=== PATIENT | male | born 1975 | race Hispanic/Latino ===

== ENCOUNTER 2023-08-01 10:18 | Day surgery (SDC) | payer OTHER ==
[2023-07-28 09:46] LABS: BASOPHILS # (AUTO) 0.04 K/uL (0.00-0.20); BASOPHILS % (AUTO) 0.4 % (0.0-5.0); EOSINOPHILS # (AUTO) 0.14 K/uL (0.00-0.70); EOSINOPHILS % (AUTO) 1.3 % (0.0-8.0); HEMATOCRIT 49.6 % (42-54); IMMATURE GRANULOCYTE ABSOLUTE 0.06 K/uL (0-1); LYMPHOCYTES # (AUTO) 0.8 K/uL (1.0-4.8); LYMPHOCYTES % (AUTO) 7.7 % (21.0-51.0); MEAN CORPUSCULAR HEMOGLOBIN 28.8 pg (27.0-33.0); MEAN CORPUSCULAR HGB CONC 31.7 g/dL (32.0-36.0); MONOCYTES # (AUTO) 1.2 K/uL (0.1-1.0); MONOCYTES % (AUTO) 11.7 % (3.0-13.0); NEUTROPHILS # (AUTO) 8.2 K/uL (1.8-7.7); NEUTROPHILS % (AUTO) 78.3 % (40.0-77.0); PLATELET COUNT (AUTO) 183 K/uL (130-400); RED BLOOD CELL COUNT(AUTO) 5.45 MIL/uL (4.50-6.20); RED CELL DISTRIBUTION WIDTH 13.8 % (11.0-15.5); WHITE BLOOD COUNT (AUTO) 10.5 K/uL (4.8-10.8)
[2023-07-28 09:53] LABS: CREATININE 0.9 mg/dL (0.5-1.5)
[2023-07-28 09:55] LABS: INR 0.98 (0.85-1.15); PROTHROMBIN TIME 11.4 SEC (9.6-11.6)
[2023-07-28 09:58] VITALS: BP 126/70; PULSE 72; RESP 17
[2023-07-28 10:54] LABS: ADD UA MICROSCOPIC YES; APPEARANCE,URINE CLEAR (CLEAR); BILIRUBIN,URINE NEGATIVE (NEGATIVE); COLOR,URINE YELLOW (YELLOW); GLUCOSE, URINE (UA) NEGATIVE (NEGATIVE); KETONES,URINE NEGATIVE (NEGATIVE); LEUKOCYTE ESTERASE ,URINE NEGATIVE Leu/uL (NEGATIVE); NITRATE,URINE NEGATIVE (NEGATIVE); OCCULT BLOOD,URINE MODERATE (NEGATIVE); PROTEIN,URINE 20 mg/dL (NEGATIVE); UROBILINOGEN,URINE 0.2 mg/dL (0.2-1.0)
[2023-07-28 10:57] LABS: BACTERIA,URINE FEW /HPF (None Seen); MUCUS,URINE RARE LPF (None Seen); WBC,URINE 0-1 /HPF (0-1)
[2023-07-28 11:29] LABS: B-TYPE NATRIURETIC PEPTIDE 182 pg/mL (0-100)
[~2023-08-01] VITALS: Ht 167.6 cm; Wt 44.6 kg
[2023-08-01] VITALS (8 sets, daily range): BP systolic 109–149; BP diastolic 64–74; PULSE 63–77; RESP 16–19
[~2023-08-01 10:18] MED LIST: ATOR40TA71 PO; METO-408 PO; OMEP20CA12 PO; SACU1TAB PO
[2023-08-01] MEDS ORDERED: 0.9%NACL 1000ML 1,000 ML IV ONE (11:20)
[2023-08-01] MEDS ORDERED: LIDOCAINE HCL 400MG/20ML VIAL ONE (16:41)
[2023-08-01] MEDS ORDERED: NITROGLYCERIN 50MG VIAL ONE ×2 (16:41→16:59)
[2023-08-01] MEDS ORDERED: MIDAZOLAM HCL 1 MG/ML 2ML VIAL ONE ×3 (16:41→17:53)
[2023-08-01] MEDS ORDERED: HEPARIN 10,000 UNIT/10ML (1,000 UNIT/ML) VIAL ONE (16:42)
[2023-08-01] MEDS ORDERED: FENTANYL CITRATE PF 50 MCG/1 ML 2ML VIAL ONE (16:42)
[2023-08-01] MEDS ORDERED: VERAPAMIL HCL 2.5 MG/ML VIAL ONE (16:42)
[2023-08-01] MEDS ORDERED: IOHEXOL 350 MG/ML 100ML INFUS..BTL IV ONE (16:42)
[2023-08-01] MEDS ORDERED: ONDANSETRON 4MG INJ ONE (16:49)
[2023-08-01] MEDS ORDERED: DiphenhydrAMINE HCL 50 MG/ML VIAL ONE (17:51)
[2023-08-01] MEDS ORDERED: GLUCAGON 1MG KIT 1 MG ML IM PRN (18:30)
[2023-08-01] MEDS ORDERED: DEXTROSE 50%-WATER 50 ML DISP.SYRIN IV PRN (18:30)
== END 2023-08-01 23:15 | disposition home or self-care (01) ==
LOC: DAH 10:18 → EDSTATUS 13:00 → DAH 23:15
PROVIDERS: ATTEND Student in an Organized Health Care Education/Training Program
DX: R93.1 Abnormal findings on diagnostic imaging of heart and coronary circulation (principal); I20.9 Angina pectoris, unspecified; Q25.0 Patent ductus arteriosus; I11.0 Hypertensive heart disease with heart failure; I50.22 Chronic systolic (congestive) heart failure; I44.7 Left bundle-branch block, unspecified; K21.9 Gastro-esophageal reflux disease without esophagitis; E78.5 Hyperlipidemia, unspecified; F17.200 Nicotine dependence, unspecified, uncomplicated; Z79.01 Long term (current) use of anticoagulants; Z79.899 Other long term (current) drug therapy; Z98.890 Other specified postprocedural states
CPT/HCPCS: 80048; 83880; 85025; 85610; 85730; 81001; 36415; 71045; 93005; 93460; C1894 ×2; C1769 ×2; A4649; J1200; J3010; J3490 ×4; J7030; J1644 ×2; J2250 ×3; J2405; Q9967; A4215; A4222; A4221; A4663; A4216; A4606; Q9965; A4223 ×3; 99156; 99157

== ENCOUNTER → 2024-02-23 | Outpatient (CLI) | payer OTHER ==
[~2024-02-23] VITALS: Ht 167.6 cm; Wt 87.8 kg
[~2024-02-23] MED LIST changes: +EMPA10TA PO; +SPIR25TA6 PO; +TRAM50TA4 PO
[2024-02-23 12:12] LABS: BASOPHILS # (AUTO) 0.04 K/uL (0.00-0.20); BASOPHILS % (AUTO) 0.5 % (0.0-5.0); EOSINOPHILS # (AUTO) 0.23 K/uL (0.00-0.70); EOSINOPHILS % (AUTO) 2.6 % (0.0-8.0); HEMATOCRIT 47.7 % (42-54); IMMATURE GRANULOCYTE ABSOLUTE 0.03 K/uL (0-1); LYMPHOCYTES # (AUTO) 1.3 K/uL (1.0-4.8); LYMPHOCYTES % (AUTO) 14.6 % (21.0-51.0); MEAN CORPUSCULAR HEMOGLOBIN 29.5 pg (27.0-33.0); MEAN CORPUSCULAR HGB CONC 32.1 g/dL (32.0-36.0); MEAN CORPUSCULAR VOLUME 91.9 fL (79-99); MONOCYTES # (AUTO) 0.8 K/uL (0.1-1.0); MONOCYTES % (AUTO) 9.5 % (3.0-13.0); NEUTROPHILS # (AUTO) 6.3 K/uL (1.8-7.7); NEUTROPHILS % (AUTO) 72.5 % (40.0-77.0); PLATELET COUNT (AUTO) 257 K/uL (130-400); RED BLOOD CELL COUNT(AUTO) 5.19 MIL/uL (4.50-6.20); RED CELL DISTRIBUTION WIDTH 13.8 % (11.0-15.5); WHITE BLOOD COUNT (AUTO) 8.7 K/uL (4.8-10.8)
[2024-02-23 12:28] LABS: INR <= 0.93 (0.85-1.15); PROTHROMBIN TIME 10.7 SEC (9.6-11.6)
[2024-02-23 12:30] LABS: PARTIAL THROMBOPLASTIN TIME 28.2 SEC (26.3-35.5)
[2024-02-23 13:18] VITALS: BP 126/73; PULSE 63; RESP 18
[2024-02-23 13:45] LABS: CREATININE 0.9 mg/dL (0.5-1.3); POTASSIUM 4.5 mmol/L (3.5-5.1)
== END | disposition home or self-care (01) ==
LOC: DAH 10:00 → EDSTATUS 15:00
PROVIDERS: ATTEND Internal Medicine Cardiovascular Disease
DX: I44.7 Left bundle-branch block, unspecified (principal); I50.20 Unspecified systolic (congestive) heart failure; I42.8 Other cardiomyopathies
CPT/HCPCS: 36415; 80048; 85025; 85610; 85730; 93005

== ENCOUNTER 2024-02-28 06:36 | Observation (INO) | payer OTHER ==
[~2024-02-28] VITALS: Ht 167.6 cm; Wt 86.4 kg
[2024-02-28] VITALS (12 sets, daily range): BP systolic 113–136; BP diastolic 67–84; PULSE 60–72; RESP 16–20; O2SAT 100
[~2024-02-28 06:36] MED LIST changes: -ATOR40TA71 PO; -OMEP20CA12 PO; -TRAM50TA4 PO
[2024-02-28 07:08] LABS: BASOPHILS # (AUTO) 0.05 K/uL (0.00-0.20); BASOPHILS % (AUTO) 0.6 % (0.0-5.0); EOSINOPHILS # (AUTO) 0.27 K/uL (0.00-0.70); EOSINOPHILS % (AUTO) 3.2 % (0.0-8.0); HEMATOCRIT 47.1 % (42-54); IMMATURE GRANULOCYTE ABSOLUTE 0.04 K/uL (0-1); LYMPHOCYTES # (AUTO) 1.5 K/uL (1.0-4.8); LYMPHOCYTES % (AUTO) 17.3 % (21.0-51.0); MEAN CORPUSCULAR HEMOGLOBIN 29.7 pg (27.0-33.0); MEAN CORPUSCULAR HGB CONC 32.7 g/dL (32.0-36.0); MEAN CORPUSCULAR VOLUME 90.9 fL (79-99); MONOCYTES # (AUTO) 0.9 K/uL (0.1-1.0); MONOCYTES % (AUTO) 10.2 % (3.0-13.0); NEUTROPHILS # (AUTO) 5.8 K/uL (1.8-7.7); NEUTROPHILS % (AUTO) 68.2 % (40.0-77.0); PLATELET COUNT (AUTO) 250 K/uL (130-400); RED BLOOD CELL COUNT(AUTO) 5.18 MIL/uL (4.50-6.20); RED CELL DISTRIBUTION WIDTH 13.7 % (11.0-15.5); WHITE BLOOD COUNT (AUTO) 8.4 K/uL (4.8-10.8)
[2024-02-28 07:25] LABS: ALBUMIN 4.1 g/dL (3.5-5.0); BILIRUBIN,TOTAL 0.8 mg/dL (0.2-1.0); CREATININE 0.7 mg/dL (0.5-1.3); POTASSIUM 3.8 mmol/L (3.5-5.1); TOTAL PROTEIN, SERUM 7.3 g/dL (6.0-8.3)
[2024-02-28 08:15] LABS: B-TYPE NATRIURETIC PEPTIDE 251 pg/mL (0-100)
[2024-02-28 08:48] LABS: ADD UA MICROSCOPIC YES; APPEARANCE,URINE CLEAR (CLEAR); BILIRUBIN,URINE NEGATIVE (NEGATIVE); COLOR,URINE LIGHT-YELLOW (YELLOW); GLUCOSE, URINE (UA) >=1000 mg/dL (NEGATIVE); KETONES,URINE 5 mg/dL (NEGATIVE); LEUKOCYTE ESTERASE ,URINE NEGATIVE Leu/uL (NEGATIVE); NITRATE,URINE NEGATIVE (NEGATIVE); OCCULT BLOOD,URINE SMALL (NEGATIVE); PROTEIN,URINE NEGATIVE (NEGATIVE); UROBILINOGEN,URINE 0.2 mg/dL (0.2-1.0)
[2024-02-28] MEDS ORDERED: IODIXANOL 320 MG/ML 100 ML VIAL ONE (14:47)
[2024-02-28] MEDS ORDERED: CEFAZOLIN SODIUM 1 GM VIAL ONE (14:47)
[2024-02-28] MEDS ORDERED: BUPIVACAINE/PF 0.25% 30ML VIAL IJ ONE (14:47)
[2024-02-28] MEDS ORDERED: LIDOCAINE HCL 1% MDV 50ML VIAL ONE (14:47)
[2024-02-28] MEDS ORDERED: MEPERIDINE-PF 25 MG/ML SYG ONE ×4 (15:05→15:44)
[2024-02-28] MEDS ORDERED: MIDAZOLAM HCL 1 MG/ML 2ML VIAL ONE ×4 (15:06→15:44)
[2024-02-28] MEDS ORDERED: ONDANSETRON 4MG INJ ONE (15:38)
[2024-02-28] MEDS ORDERED: PROPOFOL 10 MG/ML 20ML VIAL IV ONE (16:13)
[2024-02-28] MEDS ORDERED: PROPOFOL 1000 MG/100 ML 100 ML IV ONE (16:14)
[2024-02-28] MEDS ORDERED: KETAMINE 50MG/ML SYRINGE 50 MG/ML DISP.SYRIN ONE (16:14)
[2024-02-28] MEDS ORDERED: FENTANYL CITRATE PF 50 MCG/1 ML 2ML VIAL ONE ×2 (16:15)
[2024-02-28] MEDS ORDERED: ATROPINE 1MG SYG IVP ONE (16:24)
[2024-02-28] MEDS ORDERED: PHENYLEPHRINE HCL 10 MG/ML 1ML VIAL IV ONE (16:25)
[2024-02-28] MEDS ORDERED: ACETAMINOPHEN WITH CODEINE 1 TAB TAB PO PRN (18:00)
[2024-02-28] MEDS: SACUBITRIL/VALSARTAN 1 EACH TABLET PO SCH (20:20)
[2024-02-29 00:09] VITALS: BP 123/74; PULSE 70; RESP 18
[2024-02-29 03:19] VITALS: BP 113/62; PULSE 69; RESP 18
[2024-02-29] MEDS: ACETAMINOPHEN 500 MG TABLET PO PRN (04:05)
[2024-02-29] MEDS: EMPAGLIFLOZIN 10MG TABLET PO SCH (07:35)
[2024-02-29] MEDS: SPIRONOLACTONE 25 MG TAB PO SCH (07:35)
[2024-02-29] MEDS: METOPROLOL SUCCINATE 25 MG TAB.SR.24H PO SCH (07:35)
[2024-02-29 07:45] VITALS: BP 141/71; PULSE 78; RESP 18
[2024-02-29 09:50] VITALS: O2SAT 100
[2024-02-29 11:25] VITALS: BP 115/75; PULSE 74; RESP 18
[2024-02-29] MEDS ORDERED: TRAM50TA4 PO (12:47)
== END 2024-02-29 15:39 | disposition home or self-care (01) ==
LOC: EDH 06:36 → EDHIP 09:05 → 3CH 14:45 → 2AH 17:49
PROVIDERS: ADMIT Internal Medicine Cardiovascular Disease; ATTEND Internal Medicine Cardiovascular Disease
DX: I42.8 Other cardiomyopathies (principal); I44.7 Left bundle-branch block, unspecified; I11.0 Hypertensive heart disease with heart failure; I50.20 Unspecified systolic (congestive) heart failure; R07.89 Other chest pain; R55 Syncope and collapse; I25.2 Old myocardial infarction; E78.5 Hyperlipidemia, unspecified; Z79.899 Other long term (current) drug therapy; Z98.890 Other specified postprocedural states
CPT/HCPCS: 33225; 33249; 84484 ×2; 80053; 83880; 85025; 81001; 36415; 99291; 93005; 71045; C1769 ×2; C1882; C1900; C1896; C1895; G0378 ×28; J3010 ×2; J0690; J0665; J0461; J2250 ×3; J2704 ×2; J2405; J2175 ×3; J3490 ×2; J2371; Q9967; 99156; 99157

== ENCOUNTER → 2024-05-01 | Outpatient (CLI) | payer OTHER ==
[~2024-05-01] MED LIST changes: +TRAM50TA4 PO
[2024-05-01 12:10] LABS: BASOPHILS # (AUTO) 0.07 K/uL (0.00-0.20); BASOPHILS % (AUTO) 0.6 % (0.0-5.0); EOSINOPHILS # (AUTO) 0.24 K/uL (0.00-0.70); EOSINOPHILS % (AUTO) 2.2 % (0.0-8.0); HEMATOCRIT 48.3 % (42-54); IMMATURE GRANULOCYTE ABSOLUTE 0.08 K/uL (0-1); LYMPHOCYTES # (AUTO) 1.5 K/uL (1.0-4.8); LYMPHOCYTES % (AUTO) 13.7 % (21.0-51.0); MEAN CORPUSCULAR HEMOGLOBIN 29.4 pg (27.0-33.0); MEAN CORPUSCULAR HGB CONC 31.3 g/dL (32.0-36.0); MEAN CORPUSCULAR VOLUME 94.2 fL (79-99); MONOCYTES # (AUTO) 0.9 K/uL (0.1-1.0); MONOCYTES % (AUTO) 8.1 % (3.0-13.0); NEUTROPHILS # (AUTO) 8.3 K/uL (1.8-7.7); NEUTROPHILS % (AUTO) 74.7 % (40.0-77.0); PLATELET COUNT (AUTO) 248 K/uL (130-400); RED BLOOD CELL COUNT(AUTO) 5.13 MIL/uL (4.50-6.20); RED CELL DISTRIBUTION WIDTH 13.7 % (11.0-15.5); WHITE BLOOD COUNT (AUTO) 11.1 K/uL (4.8-10.8)
[2024-05-01 12:17] LABS: CREATININE 0.9 mg/dL (0.5-1.3); POTASSIUM 4.3 mmol/L (3.5-5.1)
== END | disposition home or self-care (01) ==
LOC: LAB 08:48
PROVIDERS: ATTEND Student in an Organized Health Care Education/Training Program
DX: R07.9 Chest pain, unspecified (principal); E78.5 Hyperlipidemia, unspecified; I42.8 Other cardiomyopathies
CPT/HCPCS: 36415; 80048; 85025

== ENCOUNTER 2025-03-20 16:08 | Observation (INO) | payer OTHER ==
[~2025-03-20] VITALS: Ht 167.6 cm; Wt 88.9 kg
--- NOTE | 2025-03-20 16:16 | ERN ---
ED Note History of Present Illness Stated Complaint: SCHOCKED BY DEFIBRILLATOR Chief Complaint: AICD FIRED OR SHOCKED Time Seen by MD: 16:10 Dictation: PATIENT IS A 49-YEAR-OLD MALE PATIENT OF DR. GUTIERREZ WHO WAS AT HOME LYING IN BED WATCHING TV APPROXIMATELY 1500 HOURS. HE STATES HIS AICD DEFIBRILLATOR WENT OFF FOR TIMES ONCE ONLY HE STATES HE HAS HAD NO FURTHER SHOCKS. HE DENIES CHEST PAIN BACK PAIN NO SOB. STATES HE DID TAKE HIS MEDICATIONS LATE THIS AFTERNOON BUT HE FINALLY TOOK A. PATIENT CALLED HIS SALARY MANAGER'S ADVISED HIM TO COME TO THE EMERGENCY ROOM. Allergies: Coded Allergies: No Known Drug Allergies (Unverified Allergy, Unknown, 02/23/24) Home Meds Active Scripts Tramadol Hcl (Tramadol HCl) 50 Mg Tablet, 50 MG PO Q6HPRN PRN for PAIN, #15 TAB 0 Refills Prov:KIARRA BROWN MD 02/29/24 Reported Medications Metoprolol Succinate (Metoprolol Succinate) 50 Mg Tab.er.24h, 50 MG PO DAILY, TAB 03/20/25 Spironolactone (Spironolactone) 25 Mg Tablet, 25 MG PO DAILY, TAB 02/23/24 Empagliflozin (Jardiance) 10 Mg Tablet, 10 MG PO DAILY, TAB 02/23/24 Sacubitril/Valsartan (Entresto 24 mg-26 mg Tablet) 24 Mg-26 Mg Tablet, 1 EACH PO BID, TAB 07/29/23 Metoprolol Succinate (Metoprolol Succinate) 25 Mg Tab.er.24h, 1 TAB PO DAILY 07/29/23 Past Medical History Past Medical History: High Cholesterol, Heart Disease, Hypertension, Other Surgical History: Pacer/MARCELL RN Note Reviewed/Agreed w/PFSH: Yes Review of System Dictation CONSTITUTIONAL: NEGATIVE EXCEPT FOR HPI HEAD/FACE: NEGATIVE EXCEPT FOR HPI EENT: NEGATIVE EXCEPT FOR HPI RESPIRATORY: NEGATIVE EXCEPT FOR HPI AICD DEFIBRILLATOR GASTROINTESTINAL/ABDOMINAL: NEGATIVE EXCEPT FOR HPI GENITOURINARY: NEGATIVE EXCEPT FOR HPI MUSCULOSKELETAL: NEGATIVE EXCEPT FOR HPI INTEGUMENTARY: NEGATIVE EXCEPT FOR HPI NEUROLOGICAL/PSYCH: NEGATIVE EXCEPT FOR HPI HEMATOLOGIC/LYMPHATIC: NEGATIVE EXCEPT FOR HPI ALL SYSTEMS NEGATIVE, EXCEPT NOTED ABOVE. 13 POINT REVIEW OF SYSTEMS ASSESSED AND ALL NEGATIVE EXCEPT FOR ABOVE. Initial Vital Sign VS Vital Signs Date Time Temp Pulse Resp B/P (MAP) Pulse Ox O2 Delivery O2 Flow Rate FiO2 03/20/25 16:09 97.9 87 16 129/79 97 Room Air 0 Physical Exam Dictation VITAL SIGNS REVIEWED GENERAL APPEARANCE: ALERT, ORIENTED X 3, NO ACUTE DISTRESS, WELL DEVELOPED, NOURISHED. OB/NO ACUTE DISTRESS HEAD AND FACE: NON-TRAUMATIC. EYES: PERRL, PINK CONJUNCTIVAS, EYELID NO TRAUMA, ANTERIOR CHAMBER WITH ARCUS SENILIS. EARS: PINNAS INTACT AND NO SIGNS OF TRAUMA OR ERYTHEMA EAR CANALS CLEAR AND NO DISCHARGE TM NO ERYTHEMA NOSE: NO DISCHARGE, NO BLEEDING. OROPHARYNX: MOUTH NORMAL, TONGUE PINK, PHARYNX CLEAR,NO ERYTHEMA, TONSILS NO EXUDATES, NO ABSCESSES NOTED, MUCOUS MEMBRANE MOIST NECK: SUPPLE, NON-TENDER, NO THYROMEGALY, NO MASSES, NO JVD, NO BRUITS BREAST:DEFERRED CHEST:NO TENDERNESS, NO CREPITUS, NO PARADOXICAL MOVEMENT, NO RETRACTIONS LUNGS:CLEAR, WELL-VENTILATED, SYMMETRIC, NO RALES, NO WHEEZING, NO RHONCHI, NO STRIDOR, GOOD BREATH SOUNDS BILATERALLY HEART: REGULAR RATE, REGULAR RHYTHM, NO MURMUR, NO GALLOPS VASCULAR: NO PERIPHERAL EDEMA, ABDOMEN: SOFT, POSITIVE BOWEL SOUNDS, NONDISTENDED, NO GUARDING, NONTENDER, NO REBOUND, NO MASSES NO HEPATOMEGALY, NO SPLENOMEGALY, NO CARLSON'S SIGN, NO HERNIAS. RECTAL: DEFERRED GENITAL: DEFERRED NEUROLOGICAL: NORMAL SPEECH, MOTOR FUNCTION INTACT, SENSORY FUNCTION INTACT MUSCULOSKELETAL: NECK NONTENDER, FULL RANGE OF MOTION, BACK NONTENDER, FULL RANGE OF MOTION, EXTREMITIES: NONTENDER, FULL RANGE OF MOTION SKIN: COLOR PINK, DRY, NO TURGOR, NO RASH, NO LACERATIONS, NO ABRASIONS, NO CONTUSIONS. LYMPHATIC: DEFERRED Results (Laboratory/Radiology) Laboratory/Radiology Laboratory Tests Test 03/20/25 16:21 White Blood Count 10.3 K/uL (4.8-10.8) Red Blood Count 5.25 MIL/uL (4.50-6.20) Hemoglobin 15.5 g/dL (14.0-18.0) Hematocrit 47.1 % (42-54) Mean Corpuscular Volume 89.7 fL (79-99) Mean Corpuscular Hemoglobin 29.5 pg (27.0-33.0) Mean Corpuscular Hemoglobin Concent 32.9 g/dL (32.0-36.0) Red Cell Distribution Width 14.0 % (11.0-15.5) Platelet Count 226 K/uL (130-400) Mean Platelet Volume 10.1 fL (7.5-10.5) Immature Granulocyte % (Auto) 0.6 % (0-1) Neutrophils (%) (Auto) 73.0 % (40.0-77.0) Lymphocytes (%) (Auto) 14.2 % (21.0-51.0) L Monocytes (%) (Auto) 9.2 % (3.0-13.0) Eosinophils (%) (Auto) 2.5 % (0.0-8.0) Basophils (%) (Auto) 0.5 % (0.0-5.0) Neutrophils # (Auto) 7.5 K/uL (1.8-7.7) Lymphocytes # (Auto) 1.5 K/uL (1.0-4.8) Monocytes # (Auto) 1.0 K/uL (0.1-1.0) Eosinophils # (Auto) 0.26 K/uL (0.00-0.70) Basophils # (Auto) 0.05 K/uL (0.00-0.20) Absolute Immature Granulocyte (auto 0.06 K/uL (0-1) Nucleated Red Blood Cells 0.0 % (0.0-0.19) Sodium Level 138 mmol/L (136-145) Potassium Level 4.0 mmol/L (3.5-5.1) Chloride Level 101 mmol/L (101-111) Carbon Dioxide Level 29 mmol/L (21-32) Blood Urea Nitrogen 16 mg/dL (7-18) Creatinine 0.9 mg/dL (0.5-1.3) Glomerular Filtration Rate Calc 104 mL/min (>90) Random Glucose 110 mg/dL (70-105) H Total Calcium 9.2 mg/dL (8.5-10.1) Magnesium Level 2.00 mg/dL (1.80-2.40) Troponin I High Sensitivity 25 ng/L (4-75) B-Type Natriuretic Peptide 119 pg/mL (0-100) H Labs Reviewed?: Yes EKG Comment: EKGS AND ATRIAL SINCE VENTRICULAR PACED RHYTHM, HEART RATE 85/PVCS UNIFOCAL. ED Course ED Course Orders Procedure Category Date Status Time Cbc With Differential LAB 03/20/25 Complete 16:12 B-Type Natriuretic LAB 03/20/25 Complete Peptide 16:12 Chest 1vw RAD 03/20/25 Resulted 16:12 12 Lead Ekg Tracing- EKG 03/20/25 Logged Technical 16:12 Magnesium LAB 03/20/25 Complete 16:12 Troponin I High LAB 03/20/25 Complete Sensitivity 16:12 Basic Metabolic Panel LAB 03/20/25 Complete 16:12 Pacemaker CPOE 03/20/25 Transmitted Interrogation (Er) 16:12 Cardiology Consult CONPHYSVC 03/20/25 Transmitted 17:06 Edm Admit Bridge Order ADM 03/20/25 Transmitted 17:23 Admit Orders ADM 03/20/25 Transmitted 17:24 Empagliflozin 10mg PHA 03/21/25 In Process (Jardiance 10mg) 09:00 Metoprolol Succinate PHA 03/21/25 Logged (Toprol Xl) 09:00 Sacubitril/Valsartan PHA 03/20/25 Logged (Entresto 24 Mg-26 21:00 Spironolactone 25mg PHA 03/21/25 Logged (Aldactone 25mg) 09:00 Current Medications Medications (Trade) Dose Ordered Sig/Otto Route PRN Reason Start Time Stop Time Status Last Admin Dose Admin Empaglifozin (Jardiance 10mg) 10 mg DAILY PO 03/21/25 09:00 04/20/25 08:59 Metoprolol Succinate (TopROL XL) 50 mg DAILY PO 03/21/25 09:00 04/20/25 08:59 UNV Sacubitril/ Valsartan (Entresto 24 Mg-26 Mg Tablet) 1 each BID PO 03/20/25 21:00 04/19/25 20:59 UNV Spironolactone (Aldactone 25mg) 25 mg DAILY PO 03/21/25 09:00 04/20/25 08:59 UNV Vital Signs Date Time Temp Pulse Resp B/P (MAP) Pulse Ox O2 Delivery O2 Flow Rate FiO2 03/20/25 16:09 97.9 87 16 129/79 97 Room Air 0 1710/SPOKE WITH DR. LEO AND HE IS IN THE EMERGENCY ROOM AND REVIEWED EKG AND RECOMMENDED PATIENT BE ADMITTED TO [facility] FOR OBSERVATION OVERNIGHT. HE IS EVALUATING PATIENT AT BEDSIDE. SPOKE WITH , HE AGREED TO ADMIT PATIENT FOR OBSERVATION TO TELE AFTER AICD DISCHARGED AT HOME HEART Score Response (Comments) Value Age: > 65yrs (+2) 2 Risk Factors: 3+ risk factors (+2) 2 Initial Troponin: Normal limit (0) 0 Total 4 Medical Decision Making MDM MDM: DIFFERENTIAL DIAGNOSIS: ELECTROLYTE IMBALANCE/AICD/V-TACH/V FIB/ACS/AMI RATIONALE: TESTS CONSIDERED AND ORDERED SECONDARY TO SHARED DECISION MAKING INCLUDE: LABS, ECG AND RADIOLOGY PREVIOUS OUTSIDE RECORDS REVIEWED: OLD ER VISITS. RISK OF COMPLICATION AND/OR MORBIDITY OR MORTALITY OF PATIENT MANAGEMENT: NONE MEDICATIONS-PER MEDICATION RECONCILIATION NEED FOR HOSPITALIZATION: PATIENT DOES MEET CRITERIA FOR HOSPITALIZATION. TELEMETRY FOR 24 HOUR OBSERVATION NEED FOR EMERGENCY MAJOR/MINOR SURGERY: NO THERE ARE NO SOCIAL CONCERNS WITH THIS PATIENT. PRESCRIPTION DRUG MANAGEMENT PRESCRIPTIONS WILL INCLUDE SYMPTOMATIC CARE PATIENT'S PRIOR EXTERNAL MEDICAL RECORDS FROM OTHER ER VISITS WERE REVIEWED BY ME INDICATED. PRIOR TESTING AND RESULTS FROM PREVIOUS VISITS WERE REVIEWED. PRIOR TESTS WERE TAKEN INTO ACCOUNT WITH MEDICAL DECISION MAKING AND RESOURCE UTILIZATION, INDEPENDENT HISTORIAN/HISTORIANS WERE USED TO OBTAIN COMPLETE MEDICAL HISTORY. I INDEPENDENTLY INTERPRETED THE TEST THAT WERE PERFORMED, RESULTS WERE REVIEWED BY ME AND CONSIDERED FINDINGS ON RADIOLOGY IF ORDERED. MEDICAL MANAGEMENT AND EXAMINATION INTERPRETATION DISCUSSIONS WERE HAD BY ME WITH OTHER QUALIFIED HEALTHCARE PROFESSIONALS INDICATED FOR THE PATIENT'S CARE. DX & DISP Disposition: Inpatient Decision to Admit Time: 17:14 Departure Impression: Primary Impression: AICD discharge Additional Impressions: CAD (coronary artery disease), Hyperglycemia Condition: Stable Referrals: KEENAN NICHOLAS MD (PCP) Time of Disposition: 17:14 I have reviewed the case, and I agree with, Diagnosis and Plan I performed a substantive portion of the visit. I have reviewed and personally made and approve the management plan that is documented in the notes by myself with SINCERE/resident. I acknowledged full responsibility for the patient's management plan. RAGINI VELÁZQUEZ NP Mar 20, 2025 16:16 YAHIR REBOLLEDO DO Mar 20, 2025 17:47
[2025-03-20 16:27] LABS: BASOPHILS # (AUTO) 0.05 K/uL (0.00-0.20); BASOPHILS % (AUTO) 0.5 % (0.0-5.0); EOSINOPHILS # (AUTO) 0.26 K/uL (0.00-0.70); EOSINOPHILS % (AUTO) 2.5 % (0.0-8.0); HEMATOCRIT 47.1 % (42-54); IMMATURE GRANULOCYTE ABSOLUTE 0.06 K/uL (0-1); LYMPHOCYTES # (AUTO) 1.5 K/uL (1.0-4.8); LYMPHOCYTES % (AUTO) 14.2 % (21.0-51.0); MEAN CORPUSCULAR HEMOGLOBIN 29.5 pg (27.0-33.0); MEAN CORPUSCULAR HGB CONC 32.9 g/dL (32.0-36.0); MEAN CORPUSCULAR VOLUME 89.7 fL (79-99); MONOCYTES % (AUTO) 9.2 % (3.0-13.0); NEUTROPHILS # (AUTO) 7.5 K/uL (1.8-7.7); PLATELET COUNT (AUTO) 226 K/uL (130-400); RED BLOOD CELL COUNT(AUTO) 5.25 MIL/uL (4.50-6.20); WHITE BLOOD COUNT (AUTO) 10.3 K/uL (4.8-10.8)
[2025-03-20 16:33] LABS: CREATININE 0.9 mg/dL (0.5-1.3)
[2025-03-20] MEDS ORDERED: METO-391 PO (16:45)
[2025-03-20 17:10] LABS: B-TYPE NATRIURETIC PEPTIDE 119 pg/mL (0-100)
--- NOTE | 2025-03-20 17:15 | NUR ---
DR OLIVIA LEO AT BEDSIDE
--- NOTE | 2025-03-20 17:19 | HMCIMG ---
Exam Type: CHEST 1VW Clinical Information: CHEST PAIN Comparison: None Findings: The lungs are clear of infiltrates. The heart is enlarged in size. The bony and soft tissue structures of the chest are unremarkable. Left cardiac pacemaker is noted with leads in place. Impression: Clear lungs.
--- NOTE | 2025-03-20 17:25 | NUR ---
DR BORJAS AT BEDSIDE
--- NOTE | 2025-03-20 18:03 | CONS ---
[facility] CARDIOLOGY CONSULTATION NOTE Date Patient Seen: Mar 20, 2025 Time of Visit: 17:40 Reason for Consultation: [VT /ICD discharge ] History of Present Illness: [49-year-old male patient past medical history of hypertension, hyperlipidemia, GERD, nonischemic cardiomyopathy (EF 20%), advanced end-stage heart failure status post BIV-ICD/[employer] implantation on 02/28/2024,also follows heart failure clinic with Dr. Barry, the patient was at home lying bed watching television approximately around 3:00 p.m., he states that he felt a shock sensation, called cardiology clinic and was referred to the emergency department for VT. his presenting ECG showed , a V paced rhythm , with a PVC , no ischemic changes , initial troponin was negative ( 25 ) , BNP is pending, electrolytes within normal limits , of note , the patient did state that today he skipped all his morning medications , on examination the patient currently denies any cardiac symptoms anginal equivalents. He is compensated and euvolemic on exam he has a prior 2D echocardiogram (06/29/2024) LVEF 20% with global hypokinesis and stage III diastolic dysfunction. He does state he skipped his AM meds on the day of his event. Cardiology was consulted for end-stage heart failure ] Past Medical History: [Refer to chart ] Past Surgical History: [ Refer to HPI] Family History: [Refer to HPI ] Social History: [Refer to HPI ] Habits: [Never] smoker. [Denies] alcohol consumption. [Denies] illicit drug use Review of Systems: A review of 12 point system was negative set per HPI Physical Examination: GENERAL: [No acute distress.] HEAD: [Normal with no signs of head trauma.] EYES: [PERRLA, EOMI, conjunctiva and sclera normal.] ENT: [Hearing grossly intact, normal oropharynx.] NECK: [Supple without JVD. There is no tenderness, lymphadenopathy, or masses. No thyromegaly. Normal carotid upstrokes without bruits.] LUNGS: [Clear breath sounds bilaterally.. No wheezes, or rhonchi.] HEART: [Normal rate and rhythm. Normal S1 and S2 without mumurs, gallop or rub.] VASC: [Peripheral pulses +2 bilaterally.] ABD: [Bowel sounds normal, soft, nontender, no masses, no organomegaly. No audible bruits.] : [Not examined] LYMPH: [No lymphadenopathy noted.] EXT: [No clubbing, cyanosis or edema.] SKIN: [No rashes or lesions noted.] NEURO: [Awake, alert, and oriented x3. No focal sensory or strength deficits noted.] Vital Signs (last 8hr) Date Time Temp Pulse Resp B/P (MAP) Pulse Ox O2 Delivery O2 Flow Rate FiO2 03/20/25 16:09 97.9 87 16 129/79 97 Room Air 0 Laboratory: [ ] Hematology Labs: Test 03/20/25 16:21 Range/Units White Blood Count 10.3 4.8-10.8 K/uL Red Blood Count 5.25 4.50-6.20 MIL/uL Hemoglobin 15.5 14.0-18.0 g/dL Hematocrit 47.1 42-54 % Mean Corpuscular Volume 89.7 79-99 fL Mean Corpuscular Hemoglobin 29.5 27.0-33.0 pg Mean Corpuscular Hemoglobin Concent 32.9 32.0-36.0 g/dL Red Cell Distribution Width 14.0 11.0-15.5 % Platelet Count 226 130-400 K/uL Mean Platelet Volume 10.1 7.5-10.5 fL Immature Granulocyte % (Auto) 0.6 0-1 % Neutrophils (%) (Auto) 73.0 40.0-77.0 % Lymphocytes (%) (Auto) 14.2 L 21.0-51.0 % Monocytes (%) (Auto) 9.2 3.0-13.0 % Eosinophils (%) (Auto) 2.5 0.0-8.0 % Basophils (%) (Auto) 0.5 0.0-5.0 % Neutrophils # (Auto) 7.5 1.8-7.7 K/uL Lymphocytes # (Auto) 1.5 1.0-4.8 K/uL Monocytes # (Auto) 1.0 0.1-1.0 K/uL Eosinophils # (Auto) 0.26 0.00-0.70 K/uL Basophils # (Auto) 0.05 0.00-0.20 K/uL Absolute Immature Granulocyte (auto 0.06 0-1 K/uL Nucleated Red Blood Cells 0.0 0.0-0.19 % Chemistry Labs: Test 03/20/25 16:21 Range/Units Sodium Level 138 136-145 mmol/L Potassium Level 4.0 3.5-5.1 mmol/L Chloride Level 101 101-111 mmol/L Carbon Dioxide Level 29 21-32 mmol/L Blood Urea Nitrogen 16 7-18 mg/dL Creatinine 0.9 0.5-1.3 mg/dL Glomerular Filtration Rate Calc 104 >90 mL/min Random Glucose 110 H 70-105 mg/dL Total Calcium 9.2 8.5-10.1 mg/dL Magnesium Level 2.00 1.80-2.40 mg/dL Troponin I High Sensitivity 25 4-75 ng/L B-Type Natriuretic Peptide 119 H 0-100 pg/mL Diagnostics / Radiology: [Copy/Paste Echos/Imaging Report here] Assessment: [Nonischemic cardiomyopathy - I42.8 (Lorrie Heart failure with reduced ejection fraction - I50.20 Left bundle branch block - I44.7 Hyperlipidemia LDL goal <100 - E78.5 Systolic congestive heart failure, unspecified HF chronicity - I50.20 Prediabetes - R73.03 GERD without esophagitis - K21.9 End stage heart failure - I50.84 Type 2 diabetes mellitus with hyperglycemia - E11.65 ] Plan: [# Chronic End stage HFrEF: Dilated NICM (LVEF <20% ) NYHA III , Stage D. 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 LVEDD of 0.3cm He is still following up wit Dr Barry , in heart failure clinic Prior Coronary CTA revealed no evidence of CAD with CAD RADS score of 0 S/p right and left heart catheterization confirming patent coronary vessels and elevated cardiac filling pressures (mean RA 6 mmHg, RV 33/5, PA 33/13/21, PCW 15 mmHg with a CI of 3.1) Resume his home medications. GDMT: Toprol XL to 50 mg in Am and 25 mg HS, Entresto 24/26 mg twice daily, aldactone 25mg qd and Jardiance 10 mg daily. Prio 7 day event monitor showed predominant sinus rhythm average HR 79 bpm , 4 episodes of asymptomatic VT. Repeat TTE EF< 20 % , stage II diastolic disfunction , global hipokinesis. 06-29-24 Strict I's and O's and daily weights, keep on telemetry, monitor/replace electrolytes as needed We will have his ICD device interrogated, and will evaluated by EP (DR Santizo ) tomorrow No plans for any invasive procedures Thank you for this consult cardiology will continue to follow along. Collin Raymond MD ] ATTESTATION BY PHYSICIAN I have seen and examined the patient, reviewed the above documentation, participated in medical decision making, made necessary modifications, and agree with the treatment plan as documented by my mid-level provider above. MD FELIPA Morrison JAMES R MD Mar 20, 2025 18:03
[2025-03-20 18:10] LABS: APPEARANCE,URINE CLEAR (CLEAR); BILIRUBIN,URINE NEGATIVE (NEGATIVE); COLOR,URINE COLORLESS (YELLOW); GLUCOSE, URINE (UA) >=1000 mg/dL (NEGATIVE); KETONES,URINE NEGATIVE (NEGATIVE); LEUKOCYTE ESTERASE ,URINE NEGATIVE Leu/uL (NEGATIVE); MUCUS,URINE RARE LPF (None Seen); NITRATE,URINE NEGATIVE (NEGATIVE); PH,URINE 5.5 (5.0-8.0); PROTEIN,URINE NEGATIVE (NEGATIVE); RBC,URINE 0-1 /HPF (0-1); UROBILINOGEN,URINE 0.2 mg/dL (0.2-1.0); WBC,URINE 0-1 /HPF (0-1)
[2025-03-20 18:23] LABS: INR 0.99 (0.85-1.15); PROTHROMBIN TIME 10.5 SEC (9.6-11.6)
[2025-03-20 18:25] LABS: PARTIAL THROMBOPLASTIN TIME 28.5 SEC (26.3-35.5)
[2025-03-20] MEDS ORDERED: PoTASSium chloRIDE 20MEQ/100ML 100 ML IV PRN (18:30)
[2025-03-20] MEDS ORDERED: MAGNESIUM 2GM PREMIX 50ML 50 ML IV SCH (18:30)
[2025-03-20] MEDS ORDERED: PoTASSium chl 10% ELIXIR 20MEQ 20 MEQ/15 ML UDCUP PO PRN (18:30)
[2025-03-20] MEDS ORDERED: acetaMINOPHEN 325 MG TAB PO PRN (18:30)
[2025-03-20 18:44] LABS: ALBUMIN 4.2 g/dL (3.5-5.0); BILIRUBIN,DIRECT 0.1 mg/dL (0.0-0.3); BILIRUBIN,TOTAL 0.6 mg/dL (0.2-1.0); TOTAL PROTEIN, SERUM 7.8 g/dL (6.0-8.3)
--- NOTE | 2025-03-20 18:44 | NUR ---
Educated patient and family member of the importance of following current heart healthy diet and encouraged to not bring food from outside. Patient and significant other verbalized understanding.
[2025-03-20 18:55] LABS: THYROID STIMULATING HORMONE 2.58 uIU/mL (0.36-3.74)
--- NOTE | 2025-03-20 19:16 | HP ---
[facility] HISTORY AND PHYSICAL Date of Service: Mar 20, 2025 Time of Service: 18:59 HISTORY OF PRESENT ILLNESS: Date of service: 03/20/2025, patient was seen in ER room 18 This is a 49-year-old male with underlying history of end-stage/advanced nonischemic cardiomyopathy (followed by Dr. Raymond in the [facility] and Dr Barry with advanced heart failure in [place], [place])., hypertension, hyperlipidemia, GERD, history of biventricular ICD/MUSEUM ASSISTANT D implantation in 2023, who presented to the ER for further evaluation of ICD shock. Patient states that while he was watching TV close to 3:00 p.m. today, he felt palpitations and developed tunnel vision and had a syncopal episode, he felt his ICD shocking, and the tunnel vision resolved. Denies previous history of ICD shocks. Patient states that he takes metoprolol succinate 50 mg in the morning and 25 mg at bedtime. He took the morning dose of metoprolol succinate late today close to 2:00 p.m.. He usually is compliant with his heart failure medication therapy. Reports having dyspnea on exertion with one block of ambulation. Reports having dizziness as well when sitting up as well as when standing up as well. States that the dizziness has improved after having had MUSEUM ASSISTANT-D placed in 02/2024. Reports having had a fall two weeks ago and reports having mild right knee pain. On presentation to the hospital, patient was noted to be afebrile and blood pressure noted to be at 129/79. [place] [address], hemoglobin of 14.5, platelet count of 995298. BMP remarkable for sodium of 138, potassium 4.0, BUN of 16, creatinine 0.9, magnesium of 2.0, lactic acid of 1.1. Chest x-ray showed no acute infiltrates. Patient will be admitted for further treatment and management of ICD shock. Patient was noted to have brief run of ventricular tachycardia, ICD will be interrogated and consultation with Cardiology and Cardiac electrophysiology will be requested patient patient will be monitored closely due to underlying history of advanced on ischemic cardiomyopathy. REVIEW OF SYSTEMS CONSTITUTIONAL: Denies fevers, chills, or night sweats. No unintentional weight loss reported. NEUROLOGICAL: Denies headache, amaurosis fugax, motor weakness, sensory deficit, vertigo/spinning sensation, gait abnormalities, or tremors. ENT: No hearing loss, otalgia, otorrhea, rhinitis, rhinorrhea, hoarseness, or sore throat. CARDIOVASCULAR: Reports having ICD shock today, developed palpitations and t unnel vision prior to the shock PULMONARY: Denies any shortness of breath, cough, phlegm/sputum, hemoptysis, pleuritic chest pain. SLEEP: Denies morning headaches, daytime somnolence or napping. Denies difficulty falling asleep, staying asleep, waking from sleep. Denies knowledge of snoring. GASTROINTESTINAL: Denies any type of dysphagia to either liquids or solids. Denies nausea, vomiting, pyrosis, early satiety, abdominal pain, diarrhea, constipation, or changes in stool consistency or caliber. Denies coffee-ground emesis, hematemesis, hematochezia, or melanotic stools. GENITOURINARY: Denies frequency, urgency, nocturia, hematuria or incontinence (Storage/Irritative symptoms.) Low urinary stream, straining to void, urinary intermittency or hesitancy, splitting of the voiding stream, terminal dribbling. ENDOCRINOLOGIC: Denies polyuria, polydipsia, polyphagia or heat/cold intolerances. HEMATOLOGIC: Denies thrombophilia/previous clots, or coagulopathy/bleeding disorders. ONCOLOGIC: Denies personal history of malignancy. DERMATOLOGIC: Denies rashes or pruritus. PSYCHIATRIC: Denies any suicidal or homicidal ideation. Denies hallucinations. PAST MEDICAL HISTORY: Underlying history of hypertension, hyperlipidemia, GERD, advanced severe nonischemic cardiomyopathy with LVEF less than 20% PAST SURGICAL HISTORY: History of biventricular ICD/MUSEUM ASSISTANT D implantation on 02/28/2024 PAST SOCIAL HISTORY: Currently denies active smoking or alcohol consumption, independent with ADLs, ambulates about a block before getting short of breath FAMILY HISTORY: Denies pertinent family history Allergies: No known drug allergies Home medications: Metoprolol succinate 50 mg in the morning, Jardiance 10 mg daily, spironolactone 25 mg daily, metoprolol succinate 25 mg at bedtime, Entresto 24 mg-26 mg twice daily Coded Allergies: No Known Drug Allergies (Unverified Allergy, Unknown, 02/23/24) PHYSICAL EXAM GENERAL APPEARANCE: The patient is awake, alert, and oriented, in no acute cardiopulmonary distress. NEUROLOGICAL: Cranial nerves II-XII grossly intact. Motor is 5/5 in bilateral upper and lower extremities proximal to distal. No sensory deficits. HEENT: Face is symmetric. Pupils are equal and reactive. Extraocular movements are intact. NECK: Supple. No JVD. No thyromegaly. No submental, submandibular, pre- /postauricular, occipital or supraclavicular lymphadenopathy. CHEST: Normal chest expansion. No Telemetry. LUNGS: Absence of any rales, rhonchi or any wheezing. CARDIOVASCULAR: Regular. S1 and S2 normal. No appreciable rubs, murmurs or gallops. ABDOMEN: Soft, nontender, and nondistended. There is no rebound, voluntary guarding, or rigidity. : Deferred. No Kelley. EXTREMITIES: Non-edematous and not cyanotic. No clubbing. Good capillary refill. SKIN: No skin breakdown. Vital Sign (Last 24 Hours) 03/20/25 18:06 Temp 98.4 Pulse 77 Resp 19 B/P (MAP) 105/61 Pulse Ox 95 O2 Delivery Room Air* O2 Flow Rate 0 FiO2 21 LABS: Laboratory: Test 03/20/25 18:20 03/20/25 17:40 03/20/25 16:21 Range/Units Prothrombin Time 10.5 9.6-11.6 SEC Prothromb Time International Ratio 0.99 0.85-1.15 Activated Partial Thromboplast Time 28.5 26.3-35.5 SEC Lactic Acid Level 1.1 0.8-2.5 mmol/L Total Bilirubin 0.6 0.2-1.0 mg/dL Direct Bilirubin 0.1 0.0-0.3 mg/dL Aspartate Amino Transf (AST/SGOT) 17 10-37 U/L Alanine Aminotransferase (ALT/SGPT) 31 12-78 U/L Alkaline Phosphatase 88 50-136 U/L C-Reactive Protein, Quantitative 1.30 0.5-3.0 mg/L Total Protein 7.8 6.0-8.3 g/dL Albumin 4.2 3.5-5.0 g/dL Thyroid Stimulating Hormone (TSH) 2.58 0.36-3.74 uIU/mL Free Thyroxine (T4) Direct 0.74 L 0.76-1.46 ng/dL Free Triiodothyronine (T3) pg/mL 2.95 2.18-3.98 pg/mL Urine Color COLORLESS YELLOW Urine Appearance CLEAR CLEAR Urine pH 5.5 5.0-8.0 Urine Specific Tuttle 1.010 1.001-1.031 Urine Protein NEGATIVE NEGATIVE mg/dL Urine Glucose (UA) >=1000 H NEGATIVE mg/dL Urine Ketones NEGATIVE NEGATIVE mg/dL Urine Occult Blood +- (TRACE) H NEGATIVE Urine Nitrate NEGATIVE NEGATIVE Urine Bilirubin NEGATIVE NEGATIVE mg/dL Urine Urobilinogen 0.2 0.2-1.0 mg/dL Urine Leukocyte Esterase NEGATIVE NEGATIVE Funmi/uL Urine RBC 0-1 0-1 /HPF Urine WBC 0-1 0-1 /HPF Urine Bacteria None None Seen /HPF Urine Hyaline Casts 2-5 H 0-1 /LPF /LPF White Blood Count 10.3 4.8-10.8 K/uL Red Blood Count 5.25 4.50-6.20 MIL/uL Hemoglobin 15.5 14.0-18.0 g/dL Hematocrit 47.1 42-54 % Mean Corpuscular Volume 89.7 79-99 fL Mean Corpuscular Hemoglobin 29.5 27.0-33.0 pg Mean Corpuscular Hemoglobin Concent 32.9 32.0-36.0 g/dL Red Cell Distribution Width 14.0 11.0-15.5 % Platelet Count 226 130-400 K/uL Mean Platelet Volume 10.1 7.5-10.5 fL Immature Granulocyte % (Auto) 0.6 0-1 % Neutrophils (%) (Auto) 73.0 40.0-77.0 % Lymphocytes (%) (Auto) 14.2 L 21.0-51.0 % Monocytes (%) (Auto) 9.2 3.0-13.0 % Eosinophils (%) (Auto) 2.5 0.0-8.0 % Basophils (%) (Auto) 0.5 0.0-5.0 % Neutrophils # (Auto) 7.5 1.8-7.7 K/uL Lymphocytes # (Auto) 1.5 1.0-4.8 K/uL Monocytes # (Auto) 1.0 0.1-1.0 K/uL Eosinophils # (Auto) 0.26 0.00-0.70 K/uL Basophils # (Auto) 0.05 0.00-0.20 K/uL Absolute Immature Granulocyte (auto 0.06 0-1 K/uL Nucleated Red Blood Cells 0.0 0.0-0.19 % Sodium Level 138 136-145 mmol/L Potassium Level 4.0 3.5-5.1 mmol/L Chloride Level 101 101-111 mmol/L Carbon Dioxide Level 29 21-32 mmol/L Blood Urea Nitrogen 16 7-18 mg/dL Creatinine 0.9 0.5-1.3 mg/dL Glomerular Filtration Rate Calc 104 >90 mL/min Random Glucose 110 H 70-105 mg/dL Total Calcium 9.2 8.5-10.1 mg/dL Magnesium Level 2.00 1.80-2.40 mg/dL Troponin I High Sensitivity 25 4-75 ng/L B-Type Natriuretic Peptide 119 H 0-100 pg/mL Procalcitonin < 0.05 L 0.05-0.5 ng/mL Current Medications Medications (Trade) Dose Ordered Sig/Otto Route PRN Reason Start Time Stop Time Status Last Admin Dose Admin Acetaminophen (TYLenol 325MG TAB) 650 mg Q6H PRN PO MILD PAIN (1-3) 03/20/25 18:30 04/19/25 18:29 Empaglifozin (Jardiance 10mg) 10 mg DAILY PO 03/21/25 09:00 04/20/25 08:59 Magnesium Sulfate 50 ml @ 0 mls/hr PROTOCOL IV 03/20/25 18:30 04/19/25 18:29 Metoprolol Succinate (TopROL XL) 25 mg HS PO 03/20/25 21:00 04/19/25 20:59 Metoprolol Succinate (TopROL XL) 50 mg DAILY PO 03/21/25 09:00 04/20/25 08:59 Potassium Chloride 100 ml @ 100 mls/hr AD PRN IV POTASSIUM PROTOCOL 03/20/25 18:30 04/19/25 18:29 Potassium Chloride (K-Dur/Klor-Con 20meq) 20 meq AD PRN PO POTASSIUM PROTOCOL 03/20/25 18:30 04/19/25 18:29 Potassium Chloride (KCl 10% Elixir 20meq/15ml) 20 meq AD PRN PO POTASSIUM PROTOCOL 03/20/25 18:30 04/19/25 18:29 Sacubitril/ Valsartan (Entresto 24 Mg-26 Mg Tablet) 1 each BID PO 03/20/25 21:00 04/19/25 20:59 Spironolactone (Aldactone 25mg) 25 mg DAILY PO 03/21/25 09:00 04/20/25 08:59 DIAGNOSTICS / RADIOLOGY: Chest x-ray showed no acute infiltrates ASSESSMENT: Status post AICD shock with presyncope, POA Concern for Nonsustained ventricular tachycardia, POA History of advanced severe nonischemic cardiomyopathy with LVEF less than 20%, POA History of left bundle branch block, POA History of type 2 diabetes mellitus, POA Obesity, POA history of hypertension, POA History of hyperlipidemia, POA Underlying history of left bundle branch block, POA PLAN: Patient will be admitted to cardiac telemetry floor ICD will need to be interrogated, there is concerns that patient had brief run of nonsustained V-tach leading to ICD shock, patient did have presyncopal symptoms as well with tunnel vision prior to the ICD shock We will maintain potassium greater than four and magnesium greater than two Patient has previous 2D echocardiogram showing severe nonischemic cardiomyopathy with LVEF less than 20%, patient is followed by our advanced heart failure service in [facility] and is currently being evaluated for cardiac transplantation Patient to continue with home dose of metoprolol succinate 50 mg in the morning and 20 mg at bedtime Continue with Entresto, Jardiance, spironolactone We will have cardiac electrophysiology with Dr. Santizo follow up with the patient We will avoid any QTC prolonging medications All labs will be repeated in the morning We will see how patient progresses in the next 24-48 hours, we will monitor lactic acid, we will check a TSH as well Patient reports having had a fall 2 weeks ago, complaints of mild right knee pain, will obtain radiographs of the right knee for further assessment Date of service: 03/20/2025, Plan of care was discussed with patient and family at bedside, Pedro Welsh MD Advanced Care Planning: Which of the following were discussed: Hospice care: Yes __ No _X_ Therapeutic options: Yes _X_ No __ Advance directives: Yes _X_ No __ Other discussions: Discussed with who?: Patient Voluntary nature of this service was explained to the patient? Yes _x_ No __ Amount of time spent: 20 minutes PEDRO WELSH MD Mar 20, 2025 19:16
[2025-03-20] MEDS: SACUBITRIL/VALSARTAN 1 EACH TABLET PO SCH (21:00)
[2025-03-20] MEDS: metOPROLol sucCINATE 25 MG TAB.SR.24H PO SCH (21:00)
[2025-03-21 00:05] VITALS: O2SAT 98
--- NOTE | 2025-03-21 00:17 | NUR ---
REPORT GIVEN TO RANDEE ZHOU
--- NOTE | 2025-03-21 01:01 | NUR ---
PACEMAKER INTEROGATION DONE AT BEDSIDE AT THIS TIME. ED RN CONTACTED [facility]. PER VICKY FROM [facility] A REPRESENITIVE WILL CONTACT FACILITY WITH INTERROGATION REPORT. HOSPITIAL NUMBER AND FAX NUMBER PROVIDED.
--- NOTE | 2025-03-21 01:12 | NUR ---
SERIAL NUMBER OF IMPLANTED DEVICE [id number]
[2025-03-21 01:30] VITALS: BP 147/90; PULSE 69; RESP 18; TEMP 98.2
[2025-03-21 04:00] VITALS: BP 123/71; PULSE 68; RESP 18; TEMP 97.9
[2025-03-21 04:27] LABS: BASOPHILS # (AUTO) 0.05 K/uL (0.00-0.20); BASOPHILS % (AUTO) 0.5 % (0.0-5.0); EOSINOPHILS # (AUTO) 0.28 K/uL (0.00-0.70); EOSINOPHILS % (AUTO) 2.7 % (0.0-8.0); HEMATOCRIT 48.3 % (42-54); IMMATURE GRANULOCYTE ABSOLUTE 0.06 K/uL (0-1); LYMPHOCYTES # (AUTO) 1.6 K/uL (1.0-4.8); LYMPHOCYTES % (AUTO) 15.5 % (21.0-51.0); MEAN CORPUSCULAR HEMOGLOBIN 29.1 pg (27.0-33.0); MEAN CORPUSCULAR HGB CONC 31.9 g/dL (32.0-36.0); MEAN CORPUSCULAR VOLUME 91.3 fL (79-99); MONOCYTES # (AUTO) 1.2 K/uL (0.1-1.0); MONOCYTES % (AUTO) 11.5 % (3.0-13.0); NEUTROPHILS # (AUTO) 7.1 K/uL (1.8-7.7); NEUTROPHILS % (AUTO) 69.2 % (40.0-77.0); PLATELET COUNT (AUTO) 204 K/uL (130-400); RED BLOOD CELL COUNT(AUTO) 5.29 MIL/uL (4.50-6.20); RED CELL DISTRIBUTION WIDTH 14.2 % (11.0-15.5); WHITE BLOOD COUNT (AUTO) 10.2 K/uL (4.8-10.8)
[2025-03-21] MEDS ORDERED: METO-408 PO (04:35)
[2025-03-21 04:42] LABS: ALBUMIN 3.9 g/dL (3.5-5.0); BILIRUBIN,TOTAL 0.7 mg/dL (0.2-1.0); CREATININE 0.8 mg/dL (0.5-1.3); MAGNESIUM 2.2 mg/dL (1.80-2.40); POTASSIUM 3.8 mmol/L (3.5-5.1); TOTAL PROTEIN, SERUM 7.7 g/dL (6.0-8.3)
[2025-03-21] MEDS: PoTASSium chloRIDE 20MEQ ER 20 MEQ ERTAB PO PRN (05:19)
--- NOTE | 2025-03-21 06:24 | EKG ---
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
[2025-03-21 08:00] VITALS: O2SAT 99
[2025-03-21 08:49] VITALS: BP_SYST 122; BP_SYST 127; BP_SYST 129; BP_DIAS 73; BP_DIAS 79; BP_DIAS 83; PULSE 63; RESP 16; TEMP 98
[2025-03-21] MEDS: ENOXAPARIN SODIUM 40 MG/0.4 ML SYRINGE SQ SCH (09:00)
--- NOTE | 2025-03-21 09:16 | NUR ---
DCP: HOME Pt sleeping, ex Torie Fan [phone] at bedside. Per Torie, couple are legally bu have lived together for the past year. Pt is unable to work and has applied for SSI, pending determination. She supports pt financially and as needed. Educated ex on [employer]PO[employer] and provided her with forms to review. She will discuss with pt and if he is agreeable to sign, se will notify nurse. Per ex , at home, pt is independent of all his ADLS, uses no DME or in home care services. PCP is Nigel Hutchinson and uses [facility] for rx needs. DCP is home, ex denies need for SNF. Addendum: 03/21/25 at 0921 by IRWIN ACEVEDO Amended: Links added.
--- NOTE | 2025-03-21 09:17 | PN ---
[facility] PROGRESS NOTE Date of Service: Mar 21, 2025 Time of Service: 09:12 SUBJECTIVE: This is a 49-year-old male with underlying history of end-stage/advanced nonischemic cardiomyopathy (followed by Dr. Raymond in the [facility] and Dr Barry with advanced heart failure in [place], [place])., hypertension, hyperlipidemia, GERD, history of biventricular ICD/PROSTHETICS TECHNICIAN D implantation in 2023, who presented to the ER for further evaluation of ICD shock. Patient stated that while he was watching TV close to 3:00 p.m. today, he felt palpitations and developed tunnel vision and had a syncopal episode, he felt his ICD shocking, and the tunnel vision resolved. Denied previous history of ICD shocks. Patient stated that he takes metoprolol succinate 50 mg in the morning and 25 mg at bedtime. He took the morning dose of metoprolol succinate late today close to 2:00 p.m.. He usually is compliant with his heart failure medication therapy. Reportd having dyspnea on exertion with one block of ambulation. Reported having dizziness as well when sitting up as well as when standing up as well. Stated that the dizziness has improved after having had PROSTHETICS TECHNICIAN-D placed in 02/2024. Reported having had a fall two weeks ago and reported having mild right knee pain. On presentation to the hospital, patient was noted to be afebrile and blood pressure noted to be at 129/79. [place] [address], hemoglobin of 14.5, platelet count of 992455. BMP remarkable for sodium of 138, potassium 4.0, BUN of 16, creatinine 0.9, magnesium of 2.0, lactic acid of 1.1. Chest x-ray showed no acute infiltrates. Patient admitted for further treatment and management of ICD shock. 03/21 patient remains admitted to the PCU, AOX 3, no acute events over the night, blood pressure 127/73, afebrile, saturating normal on room air, patient was noted to have brief run of ventricular tachycardia, ICD will be interrogated and consultation with Cardiology and Cardiac electrophysiology requested patient patient will be monitored closely due to underlying history of advanced on ischemic cardiomyopathy. Pacer interrogation done: 2 runs of Vtach and he was shocked twice. Cleared by cardiology to be discharge home. REVIEW OF SYSTEMS CONSTITUTIONAL: Denies fevers, chills, or night sweats. No unintentional weight loss reported. NEUROLOGICAL: Denies headache, amaurosis fugax, motor weakness, sensory deficit, vertigo/spinning sensation, gait abnormalities, or tremors. ENT: No hearing loss, otalgia, otorrhea, rhinitis, rhinorrhea, hoarseness, or sore throat. CARDIOVASCULAR: Reports having ICD shock today, developed palpitations and tunnel vision prior to the shock PULMONARY: Denies any shortness of breath, cough, phlegm/sputum, hemoptysis, pleuritic chest pain. SLEEP: Denies morning headaches, daytime somnolence or napping. Denies difficulty falling asleep, staying asleep, waking from sleep. Denies knowledge of snoring. GASTROINTESTINAL: Denies any type of dysphagia to either liquids or solids. Denies nausea, vomiting, pyrosis, early satiety, abdominal pain, diarrhea, constipation, or changes in stool consistency or caliber. Denies coffee-ground emesis, hematemesis, hematochezia, or melanotic stools. GENITOURINARY: Denies frequency, urgency, nocturia, hematuria or incontinence (Storage/Irritative symptoms.) Low urinary stream, straining to void, urinary intermittency or hesitancy, splitting of the voiding stream, terminal dribbling. ENDOCRINOLOGIC: Denies polyuria, polydipsia, polyphagia or heat/cold intolerances. HEMATOLOGIC: Denies thrombophilia/previous clots, or coagulopathy/bleeding disorders. ONCOLOGIC: Denies personal history of malignancy. DERMATOLOGIC: Denies rashes or pruritus. PSYCHIATRIC: Denies any suicidal or homicidal ideation. Denies hallucinations. PHYSICAL EXAM GENERAL APPEARANCE: The patient is awake, alert, and oriented, in no acute cardiopulmonary distress. NEUROLOGICAL: Cranial nerves II-XII grossly intact. Motor is 5/5 in bilateral upper and lower extremities proximal to distal. No sensory deficits. HEENT: Face is symmetric. Pupils are equal and reactive. Extraocular movements are intact. NECK: Supple. No JVD. No thyromegaly. No submental, submandibular, pre- /postauricular, occipital or supraclavicular lymphadenopathy. CHEST: Normal chest expansion. No Telemetry. LUNGS: Absence of any rales, rhonchi or any wheezing. CARDIOVASCULAR: Regular. S1 and S2 normal. No appreciable rubs, murmurs or gallops. ABDOMEN: Soft, nontender, and nondistended. There is no rebound, voluntary guarding, or rigidity. : Deferred. No Kelley. EXTREMITIES: Non-edematous and not cyanotic. No clubbing. Good capillary refill. SKIN: No skin breakdown. Vital Signs (last 8hr) Date Time Temp Pulse Resp B/P (MAP) Pulse Ox O2 Delivery O2 Flow Rate FiO2 03/21/25 08:49 98.1 63 16 127/73 99 Room Air 122/83 129/79 03/21/25 04:00 97.9 68 18 123/71 100 Room Air 03/21/25 01:30 98.2 69 18 147/90 99 Room Air LABS: Laboratory: Test 03/21/25 06:30 03/21/25 03:49 03/20/25 18:20 03/20/25 17:40 Range/Units Whole Blood Glucose 123 H 70-110 MG/DL White Blood Count 10.2 4.8-10.8 K/uL Red Blood Count 5.29 4.50-6.20 MIL/uL Hemoglobin 15.4 14.0-18.0 g/dL Hematocrit 48.3 42-54 % Mean Corpuscular Volume 91.3 79-99 fL Mean Corpuscular Hemoglobin 29.1 27.0-33.0 pg Mean Corpuscular Hemoglobin Concent 31.9 L 32.0-36.0 g/dL Red Cell Distribution Width 14.2 11.0-15.5 % Platelet Count 204 130-400 K/uL Mean Platelet Volume 10.3 7.5-10.5 fL Immature Granulocyte % (Auto) 0.6 0-1 % Neutrophils (%) (Auto) 69.2 40.0-77.0 % Lymphocytes (%) (Auto) 15.5 L 21.0-51.0 % Monocytes (%) (Auto) 11.5 3.0-13.0 % Eosinophils (%) (Auto) 2.7 0.0-8.0 % Basophils (%) (Auto) 0.5 0.0-5.0 % Neutrophils # (Auto) 7.1 1.8-7.7 K/uL Lymphocytes # (Auto) 1.6 1.0-4.8 K/uL Monocytes # (Auto) 1.2 H 0.1-1.0 K/uL Eosinophils # (Auto) 0.28 0.00-0.70 K/uL Basophils # (Auto) 0.05 0.00-0.20 K/uL Absolute Immature Granulocyte (auto 0.06 0-1 K/uL Nucleated Red Blood Cells 0.0 0.0-0.19 % Sodium Level 140 136-145 mmol/L Potassium Level 3.8 3.5-5.1 mmol/L Chloride Level 103 101-111 mmol/L Carbon Dioxide Level 28 21-32 mmol/L Blood Urea Nitrogen 16 7-18 mg/dL Creatinine 0.8 0.5-1.3 mg/dL Glomerular Filtration Rate Calc 108 >90 mL/min Random Glucose 96 70-105 mg/dL Total Calcium 8.8 8.5-10.1 mg/dL Magnesium Level 2.20 1.80-2.40 mg/dL Total Bilirubin 0.7 0.2-1.0 mg/dL Aspartate Amino Transf (AST/SGOT) 15 10-37 U/L Alanine Aminotransferase (ALT/SGPT) 30 12-78 U/L Alkaline Phosphatase 85 50-136 U/L Total Protein 7.7 6.0-8.3 g/dL Albumin 3.9 3.5-5.0 g/dL Prothrombin Time 10.5 9.6-11.6 SEC Prothromb Time International Ratio 0.99 0.85-1.15 Activated Partial Thromboplast Time 28.5 26.3-35.5 SEC Lactic Acid Level 1.1 0.8-2.5 mmol/L Direct Bilirubin 0.1 0.0-0.3 mg/dL C-Reactive Protein, Quantitative 1.30 0.5-3.0 mg/L Thyroid Stimulating Hormone (TSH) 2.58 0.36-3.74 uIU/mL Free Thyroxine (T4) Direct 0.74 L 0.76-1.46 ng/dL Free Triiodothyronine (T3) pg/mL 2.95 2.18-3.98 pg/mL Urine Color COLORLESS YELLOW Urine Appearance CLEAR CLEAR Urine pH 5.5 5.0-8.0 Urine Specific [place] 1.010 1.001-1.031 Urine Protein NEGATIVE NEGATIVE mg/dL Urine Glucose (UA) >=1000 H NEGATIVE mg/dL Urine Ketones NEGATIVE NEGATIVE mg/dL Urine Occult Blood +- (TRACE) H NEGATIVE Urine Nitrate NEGATIVE NEGATIVE Urine Bilirubin NEGATIVE NEGATIVE mg/dL Urine Urobilinogen 0.2 0.2-1.0 mg/dL Urine Leukocyte Esterase NEGATIVE NEGATIVE Funmi/uL Urine RBC 0-1 0-1 /HPF Urine WBC 0-1 0-1 /HPF Urine Bacteria None None Seen /HPF Urine Hyaline Casts 2-5 H 0-1 /LPF /LPF Test 03/20/25 16:21 Range/Units Erythrocyte Sedimentation Rate 4 0-20 MM/HR Troponin I High Sensitivity 25 4-75 ng/L B-Type Natriuretic Peptide 119 H 0-100 pg/mL Procalcitonin < 0.05 L 0.05-0.5 ng/mL Current Medications Medications (Trade) Dose Ordered Sig/Otto Route PRN Reason Start Time Stop Time Status Last Admin Dose Admin Acetaminophen (TYLenol 325MG TAB) 650 mg Q6H PRN PO MILD PAIN (1-3) 03/20/25 18:30 04/19/25 18:29 Empaglifozin (Jardiance 10mg) 10 mg DAILY PO 03/21/25 09:00 04/20/25 08:59 Enoxaparin Sodium (Lovenox) 40 mg DAILY SQ 03/21/25 09:00 04/20/25 08:59 Magnesium Sulfate 50 ml @ 0 mls/hr PROTOCOL IV 03/20/25 18:30 04/19/25 18:29 Metoprolol Succinate (TopROL XL) 25 mg HS PO 03/20/25 21:00 04/19/25 20:59 Metoprolol Succinate (TopROL XL) 50 mg DAILY PO 03/21/25 09:00 04/20/25 08:59 Potassium Chloride 100 ml @ 100 mls/hr AD PRN IV POTASSIUM PROTOCOL 03/20/25 18:30 04/19/25 18:29 Potassium Chloride (K-Dur/Klor-Con 20meq) 20 meq AD PRN PO POTASSIUM PROTOCOL 03/20/25 18:30 04/19/25 18:29 03/21/25 07:39 20 MEQ Potassium Chloride (KCl 10% Elixir 20meq/15ml) 20 meq AD PRN PO POTASSIUM PROTOCOL 03/20/25 18:30 04/19/25 18:29 Sacubitril/ Valsartan (Entresto 24 Mg-26 Mg Tablet) 1 each BID PO 03/20/25 21:00 04/19/25 20:59 Spironolactone (Aldactone 25mg) 25 mg DAILY PO 03/21/25 09:00 04/20/25 08:59 DIAGNOSTICS / RADIOLOGY: [ ] ASSESSMENT: Status post AICD shock with presyncope, POA Concern for Nonsustained ventricular tachycardia, POA History of advanced severe nonischemic cardiomyopathy with LVEF less than 20%, POA History of left bundle branch block, POA History of type 2 diabetes mellitus, POA Obesity, POA history of hypertension, POA History of hyperlipidemia, POA Underlying history of left bundle branch block, POA PLAN: Patient remains admitted to the PCU ICD will need to be interrogated, there is concerns that patient had brief run of nonsustained V-tach leading to ICD shock, patient did have presyncopal symptoms as well with tunnel vision prior to the ICD shock We will maintain potassium greater than four and magnesium greater than two Patient has previous 2D echocardiogram showing severe nonischemic cardiomyopathy with LVEF less than 20%, patient is followed by heart failure service in [facility] and is currently being evaluated for cardiac transplantation Patient to continue with home dose of metoprolol succinate 50 mg in the morning and 20 mg at bedtime Continue with Entresto, Jardiance, spironolactone We will have cardiac electrophysiology with Dr. Santizo follow up with the patient We will avoid any QTC prolonging medications All labs will be repeated in the morning Lactic acid 1.1, TSH 2.58. We will see how patient progresses in the next 24-48 hours NEURO: Minimize central acting medications as possible. Fall Precautions. Well lighted room through the day and minimize interruptions through the night to prevent acute delirium. PULMONARY: Supplemental 02 as needed BiPAP as necessary, for respiratory distress Titrate Fio2 to keep Spo2 > or = 90% DuoNebs and CPT as needed IS hourly while awake for pulmonary hygiene prn Out of bed to chair as tolerated Maintain aspiration precautions at all times CARDIOVASCULAR: Follow hemodynamics. Vital signs per facility protocol GI & NUTRITION: Continue nutritional support Aspirations precautions Prokinetic agents and laxatives as needed KIDNEYS & ELECTROLYTES: Strict monitoring of intake and output Daily weights Avoid nephrotoxic agents Monitor electrolytes and replace as needed Goal urine output of 30mL/hr or 0.5mL/kg/hr Medications to be dosed according to renal function. Avoid contrast if possible ENDOCRINE: Maintain blood glucose between 100-180 at all times. Insulin sliding scale for blood glucose management Hypoglycemia and hyperglycemia protocol in place INFECTIOUS DISEASE: Trend temperature, WBC and procalcitonin level Follow cultures, deescalate antibiotics as soon as possible. Panculture if new onset fever HEMATOLOGY & COAGULATION: Monitor H&H. Keep Hgb > 7 Transfuse 1 unit of PRBC for Hgb < 7 Transfuse 1 pack of platelets of platelets < 20, 000 Watch for any signs and symptoms of bleeding SKIN: Pressure ulcer prevention per facility protocol Specialty mattress as needed ORTHO/REHAB Continue PT/OT PRN: MEDICATIONS Tylenol 650 mg po every 4 hrs for fever zofran 4 mg IV every 6 hrs for n/v Hydralazine 5 mg IV every 4 hrs systolic pressure > 160 bowel regiment: lactulose 20 gm PO BID PRN constipation Supportive measures: Continue GI and DVT prophylaxis Disposition: Pending improvement in clinical condition All questions answered time spent: > 35 min LIZBET SPENCER MD Mar 21, 2025 09:17
[2025-03-21] MEDS: SPIRONOLACTONE 25 MG TAB PO SCH (10:22)
[2025-03-21] MEDS: EMPAGLIFLOZIN 10MG TABLET PO SCH (10:22)
[2025-03-21] MEDS: metOPROLol sucCINATE 50 MG TAB.SR.24H PO SCH (10:22)
--- NOTE | 2025-03-21 12:03 | PN ---
[facility] CARDIOLOGY PROGRESS NOTE Date Patient Seen: Mar 21, 2025 Time of Visit: 11:59 Interval History: [No acute events overnight , review of telemetry with no atrial /ventricular arrhythmias noted , device interrogation showed a run of sustained SVT with 2 defibrillation episodes. He currently denies any cardiac symptoms or anginal equivalents. ] Physical Examination: GENERAL: [No acute distress.] HEAD: [Normal with no signs of head trauma.] EYES: [PERRLA, EOMI, conjunctiva and sclera normal.] ENT: [Hearing grossly intact, normal oropharynx.] NECK: [Supple without JVD. There is no tenderness, lymphadenopathy, or masses. No thyromegaly. Normal carotid upstrokes without bruits.] LUNGS: [Clear breath sounds bilaterally.. No wheezes, or rhonchi.] HEART: [Normal rate and rhythm. Normal S1 and S2 without mumurs, gallop or rub.] VASC: [Peripheral pulses +2 bilaterally.] ABD: [Bowel sounds normal, soft, nontender, no masses, no organomegaly. No audible bruits.] : [Not examined] LYMPH: [No lymphadenopathy noted.] EXT: [No clubbing, cyanosis or edema.] SKIN: [No rashes or lesions noted.] NEURO: [Awake, alert, and oriented x3. No focal sensory or strength deficits noted.] Laboratory: [ ] Hematology Labs: Test 03/21/25 03:49 03/20/25 16:21 Range/Units White Blood Count 10.2 4.8-10.8 K/uL Red Blood Count 5.29 4.50-6.20 MIL/uL Hemoglobin 15.4 14.0-18.0 g/dL Hematocrit 48.3 42-54 % Mean Corpuscular Volume 91.3 79-99 fL Mean Corpuscular Hemoglobin 29.1 27.0-33.0 pg Mean Corpuscular Hemoglobin Concent 31.9 L 32.0-36.0 g/dL Red Cell Distribution Width 14.2 11.0-15.5 % Platelet Count 204 130-400 K/uL Mean Platelet Volume 10.3 7.5-10.5 fL Immature Granulocyte % (Auto) 0.6 0-1 % Neutrophils (%) (Auto) 69.2 40.0-77.0 % Lymphocytes (%) (Auto) 15.5 L 21.0-51.0 % Monocytes (%) (Auto) 11.5 3.0-13.0 % Eosinophils (%) (Auto) 2.7 0.0-8.0 % Basophils (%) (Auto) 0.5 0.0-5.0 % Neutrophils # (Auto) 7.1 1.8-7.7 K/uL Lymphocytes # (Auto) 1.6 1.0-4.8 K/uL Monocytes # (Auto) 1.2 H 0.1-1.0 K/uL Eosinophils # (Auto) 0.28 0.00-0.70 K/uL Basophils # (Auto) 0.05 0.00-0.20 K/uL Absolute Immature Granulocyte (auto 0.06 0-1 K/uL Nucleated Red Blood Cells 0.0 0.0-0.19 % Erythrocyte Sedimentation Rate 4 0-20 MM/HR Chemistry Labs: Test 03/21/25 11:46 03/21/25 03:49 03/20/25 18:20 03/20/25 16:21 Range/Units Whole Blood Glucose 108 70-110 MG/DL Sodium Level 140 136-145 mmol/L Potassium Level 3.8 3.5-5.1 mmol/L Chloride Level 103 101-111 mmol/L Carbon Dioxide Level 28 21-32 mmol/L Blood Urea Nitrogen 16 7-18 mg/dL Creatinine 0.8 0.5-1.3 mg/dL Glomerular Filtration Rate Calc 108 >90 mL/min Random Glucose 96 70-105 mg/dL Total Calcium 8.8 8.5-10.1 mg/dL Magnesium Level 2.20 1.80-2.40 mg/dL Total Bilirubin 0.7 0.2-1.0 mg/dL Aspartate Amino Transf (AST/SGOT) 15 10-37 U/L Alanine Aminotransferase (ALT/SGPT) 30 12-78 U/L Alkaline Phosphatase 85 50-136 U/L Total Protein 7.7 6.0-8.3 g/dL Albumin 3.9 3.5-5.0 g/dL Lactic Acid Level 1.1 0.8-2.5 mmol/L Direct Bilirubin 0.1 0.0-0.3 mg/dL C-Reactive Protein, Quantitative 1.30 0.5-3.0 mg/L Thyroid Stimulating Hormone (TSH) 2.58 0.36-3.74 uIU/mL Free Thyroxine (T4) Direct 0.74 L 0.76-1.46 ng/dL Free Triiodothyronine (T3) pg/mL 2.95 2.18-3.98 pg/mL Troponin I High Sensitivity 25 4-75 ng/L B-Type Natriuretic Peptide 119 H 0-100 pg/mL Procalcitonin < 0.05 L 0.05-0.5 ng/mL Coagulation Labs: Test 03/20/25 18:20 Range/Units Prothrombin Time 10.5 9.6-11.6 SEC Prothromb Time International Ratio 0.99 0.85-1.15 Activated Partial Thromboplast Time 28.5 26.3-35.5 SEC Diagnostics / Radiology: [Copy/Paste Echos/Imaging Report here] Impression and Plan: [ Assessment: [Nonischemic cardiomyopathy - I42.8 ([facility] Heart failure with reduced ejection fraction - I50.20 Left bundle branch block - I44.7 Hyperlipidemia LDL goal <100 - E78.5 Systolic congestive heart failure, unspecified HF chronicity - I50.20 Prediabetes - R73.03 GERD without esophagitis - K21.9 End stage heart failure - I50.84 Type 2 diabetes mellitus with hyperglycemia - E11.65 ] Plan: [# Chronic End stage HFrEF: Dilated NICM (LVEF <20% ) NYHA III , Stage D. 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 LVEDD of 0.3cm He is still following up wit Dr Barry , in heart failure clinic Prior Coronary CTA revealed no evidence of CAD with CAD RADS score of 0 S/p right and left heart catheterization confirming patent coronary vessels and elevated cardiac filling pressures (mean RA 6 mmHg, RV 33/5, PA 33/13/21, PCW 15 mmHg with a CI of 3.1) Resume his home medications. GDMT: Toprol XL to 50 mg in Am and 25 mg HS, Entresto 24/26 mg twice daily, aldactone 25mg qd and Jardiance 10 mg daily. Prio 7 day event monitor showed predominant sinus rhythm average HR 79 bpm , 4 episodes of asymptomatic VT. Repeat TTE EF< 20 % , stage II diastolic disfunction , global hipokinesis. 06-29-24 Strict I's and O's and daily weights, keep on telemetry, monitor/replace electrolytes as needed Device interrogation showed a run of sustained VT with 2 defibrilation episodes. His sustained VT can be due to overexertion and dehydration No plans for any invasive procedures Thank you for this consult cardiology will sign off at this time , the patient will follow up in clinic 1 weeks after discharge Collin Raymond MD ]] ATTESTATION BY PHYSICIAN I have seen and examined the patient, reviewed the above documentation, participated in medical decision making, made necessary modifications, and agree with the treatment plan as documented by my mid-level provider above. MD FELIPA Morrison JAMES R MD Mar 21, 2025 12:03
[2025-03-21 12:27] VITALS: BP 112/63; PULSE 70; RESP 16; TEMP 98.6
--- NOTE | 2025-03-21 12:58 | DS ---
Discharge Summary Hospital Course Summary: This is a 49-year-old male with underlying history of end-stage/advanced nonischemic cardiomyopathy (followed by Dr. Raymond in the [place] and Dr Barry with advanced heart failure in [place], [place])., hypertension, hyperlipidemia, GERD, history of biventricular ICD/MANAGER INFRASTRUCTURE D implantation in 2023, who presented to the ER for further evaluation of ICD shock. Patient stated that while he was watching TV close to 3:00 p.m. today, he felt palpitations and developed tunnel vision and had a syncopal episode, he felt his ICD shocking, and the tunnel vision resolved. Denied previous history of ICD shocks. Patient stated that he takes metoprolol succinate 50 mg in the morning and 25 mg at bedtime. He took the morning dose of metoprolol succinate late today close to 2:00 p.m.. He usually is compliant with his heart failure medication therapy. Reportd having dyspnea on exertion with one block of ambulation. Reported having dizziness as well when sitting up as well as when standing up as well. Stated that the dizziness has improved after having had MANAGER INFRASTRUCTURE-D placed in 02/2024. Reported having had a fall two weeks ago and reported having mild right knee pain. On presentation to the hospital, patient was noted to be afebrile and blood pressure noted to be at 129/79. [place] [address], hemoglobin of 14.5, platelet count of 732083. BMP remarkable for sodium of 138, potassium 4.0, BUN of 16, creatinine 0.9, magnesium of 2.0, lactic acid of 1.1. Chest x-ray showed no acute infiltrates. Patient admitted for further treatment and management of ICD shock. 03/21 patient remains admitted to the PCU, AOX 3, no acute events over the night, blood pressure 127/73, afebrile, saturating normal on room air, patient was noted to have brief run of ventricular tachycardia, ICD will be interrogated and consultation with Cardiology and Cardiac electrophysiology requested patient patient will be monitored closely due to underlying history of advanced on ischemic cardiomyopathy. Pacer interrogation done: 2 runs of Vtach and he was shocked twice. Cleared by cardiology to be discharge home. Field Service Analyst(s): Cardiology Assessment/Plan: final diagnosis Status post AICD shock with presyncope, POA Concern for Nonsustained ventricular tachycardia, POA History of advanced severe nonischemic cardiomyopathy with LVEF less than 20%, POA History of left bundle branch block, POA History of type 2 diabetes mellitus, POA Obesity, POA history of hypertension, POA History of hyperlipidemia, POA Underlying history of left bundle branch block, POA Discharge Instructions: Pacer interrogation done: 2 runs of Vtach and he was shocked twice. Cleared by cardiology to be discharge home. Home Medications: Reported Medications Metoprolol Succinate (Metoprolol Succinate) 25 Mg Tab.er.24h, 25 MG PO HS, TAB 03/21/25 Metoprolol Succinate (Metoprolol Succinate) 50 Mg Tab.er.24h, 50 MG PO DAILY, TAB 03/20/25 Spironolactone (Spironolactone) 25 Mg Tablet, 25 MG PO DAILY, TAB 02/23/24 Empagliflozin (Jardiance) 10 Mg Tablet, 10 MG PO DAILY, TAB 02/23/24 Sacubitril/Valsartan (Entresto 24 mg-26 mg Tablet) 24 Mg-26 Mg Tablet, 1 EACH PO BID, TAB 07/29/23 Metoprolol Succinate (Metoprolol Succinate) 25 Mg Tab.er.24h, 1 TAB PO DAILY 07/29/23 Discontinued Scripts Tramadol Hcl (Tramadol HCl) 50 Mg Tablet, 50 MG PO Q6HPRN PRN for PAIN, #15 TAB 0 Refills Prov:KIARRA BROWN MD 02/29/24 Time spent arranging discharge: 31-60 minutes LIZBET SPENCER MD Mar 21, 2025 12:58
--- NOTE | 2025-03-21 14:05 | NUR ---
DISCHARGE INSTRUCTIONS WERE GIVEN TO THIS PATIENT AND SPOUSE AT BEDSIDE. ALL QUESTIONS WERE ANSWERED AND FOLLOW UP DATE AND TIMES WERE PROVIDED. PIV TO RIGHT AC WAS DISCONTINUED WITH CATHETER INTACT AND DRY DRESSING APPLIED ONCE BLEEDING STOPPED. ALL BELONGINGS WERE TAKEN WITH AND PATIENT WAS TAKEN DOWN TO PRIVATE VEHICLE VIA WHEEL CHAIR. PATIENT DENIED ANY CHEST PAIN NOR WAS IN ANY RESPIRATORY DISTRESS.
== END 2025-03-21 14:00 | disposition home or self-care (01) ==
LOC: EDH 16:08 → EDHIP 18:01 → INTOOBSV 18:01 → EDHIP 19:24 → 2AH 03-21 01:38
PROVIDERS: ADMIT Internal Medicine; ATTEND Internal Medicine
DX: I47.20 Ventricular tachycardia, unspecified (principal); I44.7 Left bundle-branch block, unspecified; E66.9 Obesity, unspecified; I42.8 Other cardiomyopathies; I11.0 Hypertensive heart disease with heart failure; I50.22 Chronic systolic (congestive) heart failure; I50.84 End stage heart failure; E11.65 Type 2 diabetes mellitus with hyperglycemia; E78.00 Pure hypercholesterolemia, unspecified; K21.9 Gastro-esophageal reflux disease without esophagitis; R55 Syncope and collapse; I25.5 Ischemic cardiomyopathy; I25.10 Atherosclerotic heart disease of native coronary artery without angina pectoris; Z68.31 Body mass index [BMI] 31.0-31.9, adult; Z95.810 Presence of automatic (implantable) cardiac defibrillator
CPT/HCPCS: 99285; 84443; 80076; 83735 ×2; 84484; 80048; 83880; 85025 ×2; 85610; 85730; 85651; 84439; 83605; 84481; 86140; 81001; 36415 ×2; 71045; 93005; 84145; 80053; 82948 ×2; G0378 ×20; J1650